=== PATIENT | male | born 1970 | race Caucasian/White ===

== ENCOUNTER 2018-02-22 11:34 | Inpatient (IN) ==
[2018-02-22] MEDS ORDERED: ACETAMINOPHEN 325 MG TABLET PO PRN (14:53)
[2018-02-22] MEDS ORDERED: ONDANSETRON 4 MG/2 ML VIAL IV PRN (14:53)
[2018-02-22] MEDS ORDERED: ALBUTEROL/IPRATROPIUM 3 ML NEB RESP TX PRN (15:02)
[2018-02-22 15:51] LABS: Basophils # 0.1 10*3/uL (0.0-0.2); Basophils % 0.3 % (0.0-0.8); Eosinophils # 0.1 10*3/uL (0.0-0.87); Eosinophils % 0.4 % (0.00-10.9); Hematocrit 33.5 VOL% (42.0-52.0); Hemoglobin 10.7 GM/DL (14.0-18.0); Immature Granulocytes % 5.9 %; Immature Granulocytes Absolute 1.13 #; Lymphocytes # 2.1 10*3/uL (1.4-4.0); Lymphocytes % 10.8 % (21.2-54.2); Mean Corpuscular HGB Conc 31.9 GM/DL (32-36); Mean Corpuscular Hemoglobin 30 PG (27-34); Mean Corpuscular Volume 92.5 FL (87-102); Mean Platelet Volume 12.4 FL (9.6-12.0); Monocytes % 5.2 % (1.7-12.7); Neutrophils # 14.9 10*3/uL (1.4-7.4); Neutrophils % 77.4 % (38.7-73.9); Platelet Count 281 T/CUMM (130-400); Red Blood Count 3.62 MC/CUMM (3.8-5.5); Red Cell Distribution Width 15.8 % (9.3-17.3); White Blood Count 19.2 T/CUMM (4-12)
[2018-02-22] MEDS ORDERED: DILTIAZEM 25 MG/5 ML VIAL IV ONE ×2 (16:12→20:57)
[2018-02-22 16:13] LABS: Bilirubin,Total 1.4 MG/DL (0.2-1.0); Calcium 8.2 MG/DL (8.5-10.1); Osmolality,Calculated 271.2 MOS/KG (273-304); Potassium 3.5 MMOL/L (3.5-5.1); Total Protein 7.9 G/DL (6.4-8.3)
[2018-02-22 16:14] LABS: Troponin I < 0.015 NG/ML (0.00-0.045)
[2018-02-22 16:55] LABS: Band Neutrophils 2 % (0-10); Eosinophils 1 % (0-10); Lymphocytes 11 % (20-55); Myelocytes 1 %; Segmented Neutrophils 79 % (50-85); Total Cells Counted 100
[2018-02-22 16:56] LABS: Hypochromasia Slight; Microcytosis Slight; Platelet Estimate Normal
[2018-02-22] MEDS: DILTIAZEM INJ 100 MG in SODIUM CHLORIDE 0.9% 100 ML IV SCH ×2 (16:57→22:59)
[2018-02-22] MEDS: PIPERACILLIN/TAZOBACTAM 3,375 MG in SODIUM CHLORIDE 0.9% 100 ML IV SCH (17:34)
[2018-02-22] MEDS: ENOXAPARIN 80 MG/0.8 ML SYRINGE SUBCUT SCH (17:50)
[2018-02-22] MEDS ORDERED: METOPROLOL TARTRATE 5 MG/5 ML VIAL IV ONE ×2 (19:42→19:52)
[2018-02-22] MEDS ORDERED: SODIUM CHLORIDE 0.9% 500 ML IV ONE (19:56)
[2018-02-22 21:04] LABS: Troponin I < 0.015 NG/ML (0.00-0.045)
[2018-02-22] MEDS: VANCOMYCIN INJ 2,500 MG in SODIUM CHLORIDE 0.9% 500 ML IV SCH (21:17)
[2018-02-22] MEDS ORDERED: LABETALOL 20 MG/4 ML SYRINGE IV ONE (22:27)
[2018-02-22] MEDS ORDERED: METOPROLOL TARTRATE 5 MG/5 ML VIAL IV PRN (23:00)
[2018-02-23] MEDS ORDERED: METOPROLOL TARTRATE 5 MG/5 ML VIAL IV SCH
[2018-02-23] MEDS: PIPERACILLIN/TAZOBACTAM 3,375 MG in SODIUM CHLORIDE 0.9% 100 ML IV SCH ×3 (01:23→20:00)
[2018-02-23] MEDS ORDERED: DIGOXIN 0.5 MG/2 ML AMP IV ONE (01:47)
[2018-02-23] MEDS ORDERED: AMIODARONE INJ 450 MG in DEXTROSE 5% 241 ML IV SCH (03:00)
[2018-02-23] MEDS ORDERED: MORPHINE 4 MG/1 ML VIAL IV PRN (03:41)
[2018-02-23] MEDS: DILTIAZEM INJ 100 MG in SODIUM CHLORIDE 0.9% 100 ML IV SCH ×5 (04:01→23:30)
[2018-02-23 04:23] LABS: Basophils # 0.1 10*3/uL (0.0-0.2); Basophils % 0.4 % (0.0-0.8); Eosinophils # 0.1 10*3/uL (0.0-0.87); Eosinophils % 0.4 % (0.00-10.9); Hematocrit 33.2 VOL% (42.0-52.0); Hemoglobin 10.8 GM/DL (14.0-18.0); Immature Granulocytes % 7.3 %; Lymphocytes # 1.9 10*3/uL (1.4-4.0); Lymphocytes % 11.5 % (21.2-54.2); Mean Corpuscular HGB Conc 32.5 GM/DL (32-36); Mean Corpuscular Hemoglobin 30 PG (27-34); Mean Platelet Volume 11.9 FL (9.6-12.0); Monocytes # 0.9 10*3/uL (0.11-0.8); Monocytes % 5.4 % (1.7-12.7); Neutrophils # 12.4 10*3/uL (1.4-7.4); Platelet Count 284 T/CUMM (130-400); Red Blood Count 3.57 MC/CUMM (3.8-5.5); Red Cell Distribution Width 15.7 % (9.3-17.3); White Blood Count 16.5 T/CUMM (4-12)
[2018-02-23 04:59] LABS: Troponin I 0.023 NG/ML (0.00-0.045)
[2018-02-23 05:04] LABS: Calcium 7.6 MG/DL (8.5-10.1); Osmolality,Calculated 270.4 MOS/KG (273-304); Potassium 3.3 MMOL/L (3.5-5.1); Risk Ratio 5.6; Thyroid Stimulating Hormone 1.19 uIU/ml (0.358-3.74)
[2018-02-23 05:05] LABS: Lymphocytes 10 % (20-55); Segmented Neutrophils 86 % (50-85); Total Cells Counted 100
[2018-02-23 05:06] LABS: Platelet Estimate Normal; Polychromasia Slight
[2018-02-23] MEDS: ENOXAPARIN 80 MG/0.8 ML SYRINGE SUBCUT SCH ×2 (05:20→20:00)
[2018-02-23] MEDS ORDERED: DILTIAZEM 50 MG/10 ML VIAL IV ONE (07:43)
[2018-02-23] MEDS: PANTOPRAZOLE 40 MG TABLET PO SCH (08:28)
[2018-02-23] MEDS ORDERED: POTASSIUM CHLORIDE 20 MEQ TABLET PO PRN (08:32)
[2018-02-23] MEDS ORDERED: AMIODARONE 450 MG/9 ML VIAL IV ONE ×2 (11:21→19:13)
[2018-02-23] MEDS: AMIODARONE INJ 450 MG in DEXTROSE 5% 241 ML IV SCH ×2 (11:30→19:30)
[2018-02-23] MEDS ORDERED: INFLUENZA VIRUS VACCINE 0.5 ML SYRINGE IM ONE (14:07)
[2018-02-23 18:14] LABS: Amorphous Crystals,Urine Occasional /HPF (Few); Apearance,Urine Slightly Hazy (Clear); Bilirubin,Urine Negative (Negative); Blood, Urine Large mg/dL (Negative); Glucose,Urine (UA) Negative (Negative); Ketones,Urine Negative (Negative); Mucus,Urine Occasional /LPF (Occasional); Nitrite,Urine Negative (Negative); Protein,Urine Negative; RBC,Urine 3 /HPF (0-4); Urine Color Yellow (Yellow); Urine Specific Gravity 1.012 (1.001-1.035); WBC,Urine 1 /HPF (0-6)
[2018-02-23] MEDS: METOPROLOL TARTRATE 50 MG TABLET PO SCH ×2 (19:22→20:26)
[2018-02-23] MEDS: POTASSIUM CHLORIDE 20 MEQ TABLET PO SCH (19:22)
[2018-02-23] MEDS: MORPHINE 4 MG/1 ML VIAL IV PRN ×2 (20:29→23:55)
[2018-02-23] MEDS: VANCOMYCIN INJ 2,500 MG in SODIUM CHLORIDE 0.9% 500 ML IV SCH (21:10)
[2018-02-24] MEDS: PIPERACILLIN/TAZOBACTAM 3,375 MG in SODIUM CHLORIDE 0.9% 100 ML IV SCH ×3 (02:05→16:54)
[2018-02-24] MEDS: AMIODARONE INJ 450 MG in DEXTROSE 5% 241 ML IV SCH ×3 (03:06→19:36)
[2018-02-24] MEDS: DILTIAZEM INJ 100 MG in SODIUM CHLORIDE 0.9% 100 ML IV SCH ×5 (03:07→23:03)
[2018-02-24 04:59] LABS: Basophils # 0.1 10*3/uL (0.0-0.2); Basophils % 0.5 % (0.0-0.8); Eosinophils # 0.2 10*3/uL (0.0-0.87); Eosinophils % 1.1 % (0.00-10.9); Hematocrit 34.7 VOL% (42.0-52.0); Hemoglobin 11.2 GM/DL (14.0-18.0); Immature Granulocytes % 8.6 %; Immature Granulocytes Absolute 1.45 #; Lymphocytes # 1.9 10*3/uL (1.4-4.0); Lymphocytes % 11.3 % (21.2-54.2); Mean Corpuscular HGB Conc 32.3 GM/DL (32-36); Mean Corpuscular Hemoglobin 30 PG (27-34); Mean Corpuscular Volume 93.8 FL (87-102); Mean Platelet Volume 12.3 FL (9.6-12.0); Monocytes % 6.1 % (1.7-12.7); NRBC # 0.02 10*3/uL; Neutrophils # 12.2 10*3/uL (1.4-7.4); Neutrophils % 72.4 % (38.7-73.9); Platelet Count 246 T/CUMM (130-400); Red Cell Distribution Width 15.9 % (9.3-17.3); White Blood Count 16.9 T/CUMM (4-12)
[2018-02-24 05:13] LABS: Calcium 7.6 MG/DL (8.5-10.1); Osmolality,Calculated 269.1 MOS/KG (273-304); Potassium 3.7 MMOL/L (3.5-5.1)
[2018-02-24 05:32] LABS: Band Neutrophils 3 % (0-10); Eosinophils 1 % (0-10); Hypochromasia 2+; Lymphocytes 8 % (20-55); Metamyelocytes 2 %; Platelet Estimate Normal; Segmented Neutrophils 82 % (50-85); Total Cells Counted 100
[2018-02-24] MEDS: MORPHINE 4 MG/1 ML VIAL IV PRN ×2 (06:40→19:38)
[2018-02-24] MEDS: ENOXAPARIN 80 MG/0.8 ML SYRINGE SUBCUT SCH (06:45)
[2018-02-24] MEDS: RIVAROXABAN 20 MG TABLET PO SCH (08:05)
[2018-02-24] MEDS: METOPROLOL TARTRATE 50 MG TABLET PO SCH ×2 (08:06→21:02)
[2018-02-24] MEDS: POTASSIUM CHLORIDE 20 MEQ TABLET PO SCH (08:06)
[2018-02-24] MEDS: PANTOPRAZOLE 40 MG TABLET PO SCH (08:07)
[2018-02-24] MEDS: DILTIAZEM CD 240 MG CAPSULE PO SCH (15:26)
[2018-02-24] MEDS: AMIODARONE 200 MG TABLET PO SCH (21:02)
[2018-02-24] MEDS: HYDROcodone/CHLORPHENIRAMINE ER 5 ML UDCUP PO SCH (21:02)
[2018-02-24] MEDS: TRIAMCINOLONE 0.1% OINT 15 GM TUBE TOP SCH (21:02)
[2018-02-24] MEDS: VANCOMYCIN INJ 2,500 MG in SODIUM CHLORIDE 0.9% 500 ML IV SCH (21:02)
[2018-02-25] MEDS: AMIODARONE INJ 450 MG in DEXTROSE 5% 241 ML IV SCH ×2 (01:51→09:50)
[2018-02-25] MEDS: MORPHINE 4 MG/1 ML VIAL IV PRN ×2 (02:11→19:15)
[2018-02-25] MEDS: PIPERACILLIN/TAZOBACTAM 3,375 MG in SODIUM CHLORIDE 0.9% 100 ML IV SCH ×3 (02:15→16:42)
[2018-02-25] MEDS ORDERED: RIVAROXABAN 20 MG TABLET PO SCH (09:00)
[2018-02-25] MEDS: PANTOPRAZOLE 40 MG TABLET PO SCH (09:21)
[2018-02-25] MEDS: FUROSEMIDE 40 MG TABLET PO SCH (09:21)
[2018-02-25] MEDS: LISINOPRIL 5 MG TABLET PO SCH (09:21)
[2018-02-25] MEDS: RIVAROXABAN 20 MG TABLET PO SCH (09:22)
[2018-02-25] MEDS: DILTIAZEM CD 240 MG CAPSULE PO SCH (09:22)
[2018-02-25] MEDS: POTASSIUM CHLORIDE 20 MEQ TABLET PO SCH (09:22)
[2018-02-25] MEDS: METOPROLOL TARTRATE 50 MG TABLET PO SCH ×2 (09:22→20:13)
[2018-02-25] MEDS: AMIODARONE 200 MG TABLET PO SCH ×2 (09:22→20:13)
[2018-02-25] MEDS: HYDROcodone/CHLORPHENIRAMINE ER 5 ML UDCUP PO SCH ×2 (09:24→20:13)
[2018-02-25] MEDS: TRIAMCINOLONE 0.1% OINT 15 GM TUBE TOP SCH ×2 (11:08→21:21)
[2018-02-25] MEDS: SODIUM CHLORIDE 0.9% 1,000 ML IV SCH (16:44)
[2018-02-25] MEDS: VANCOMYCIN INJ 2,500 MG in SODIUM CHLORIDE 0.9% 500 ML IV SCH (20:52)
[2018-02-26] MEDS: PIPERACILLIN/TAZOBACTAM 3,375 MG in SODIUM CHLORIDE 0.9% 100 ML IV SCH ×3 (01:50→20:59)
[2018-02-26 03:40] LABS: Basophils # 0.1 10*3/uL (0.0-0.2); Basophils % 0.4 % (0.0-0.8); Eosinophils # 0.1 10*3/uL (0.0-0.87); Eosinophils % 0.8 % (0.00-10.9); Hematocrit 35.5 VOL% (42.0-52.0); Immature Granulocytes % 5.1 %; Immature Granulocytes Absolute 0.69 #; Lymphocytes # 0.9 10*3/uL (1.4-4.0); Mean Corpuscular Hemoglobin 29 PG (27-34); Mean Corpuscular Volume 93.9 FL (87-102); Mean Platelet Volume 11.3 FL (9.6-12.0); Monocytes # 0.7 10*3/uL (0.11-0.8); Neutrophils % 81.7 % (38.7-73.9); Platelet Count 395 T/CUMM (130-400); Red Blood Count 3.78 MC/CUMM (3.8-5.5); Red Cell Distribution Width 15.9 % (9.3-17.3); White Blood Count 13.5 T/CUMM (4-12)
[2018-02-26 04:08] LABS: Calcium 7.7 MG/DL (8.5-10.1); Potassium 3.9 MMOL/L (3.5-5.1)
[2018-02-26 04:45] LABS: Lymphocytes 4 % (20-55); Segmented Neutrophils 94 % (50-85); Total Cells Counted 100
[2018-02-26 04:46] LABS: Platelet Estimate Normal; Polychromasia Few
[2018-02-26] MEDS: DILTIAZEM CD 240 MG CAPSULE PO SCH (08:02)
[2018-02-26] MEDS: METOPROLOL TARTRATE 50 MG TABLET PO SCH ×2 (08:03→20:59)
[2018-02-26] MEDS: AMIODARONE 200 MG TABLET PO SCH ×2 (08:03→20:59)
[2018-02-26] MEDS: POTASSIUM CHLORIDE 20 MEQ TABLET PO SCH (10:23)
[2018-02-26] MEDS: TRIAMCINOLONE 0.1% OINT 15 GM TUBE TOP SCH ×2 (10:23→21:01)
[2018-02-26] MEDS: RIVAROXABAN 20 MG TABLET PO SCH (10:23)
[2018-02-26] MEDS: FUROSEMIDE 40 MG TABLET PO SCH (10:23)
[2018-02-26] MEDS: HYDROcodone/CHLORPHENIRAMINE ER 5 ML UDCUP PO SCH ×2 (10:24→20:59)
[2018-02-26] MEDS: PANTOPRAZOLE 40 MG TABLET PO SCH (10:24)
[2018-02-26] MEDS: LISINOPRIL 5 MG TABLET PO SCH (10:24)
[2018-02-26] MEDS ORDERED: PROPOFOL 200 MG/20 ML VIAL IV ONE (12:52)
[2018-02-26] MEDS: SODIUM CHLORIDE 0.9% 1,000 ML IV SCH (13:30)
[2018-02-26] MEDS ORDERED: VANCOMYCIN INJ 2,500 MG in SODIUM CHLORIDE 0.9% 500 ML IV SCH (15:00)
[2018-02-26] MEDS: LINEZOLID INJ 600 MG in PREMIX 1 EACH IV SCH (16:10)
[2018-02-27] MEDS: LINEZOLID INJ 600 MG in PREMIX 1 EACH IV SCH ×2 (04:10→17:21)
[2018-02-27 04:50] LABS: Basophils # 0.1 10*3/uL (0.0-0.2); Basophils % 0.5 % (0.0-0.8); Eosinophils # 0.2 10*3/uL (0.0-0.87); Eosinophils % 1.4 % (0.00-10.9); Hematocrit 34.2 VOL% (42.0-52.0); Hemoglobin 10.5 GM/DL (14.0-18.0); Immature Granulocytes % 3.6 %; Lymphocytes # 0.8 10*3/uL (1.4-4.0); Lymphocytes % 7.3 % (21.2-54.2); Mean Corpuscular HGB Conc 30.7 GM/DL (32-36); Mean Corpuscular Hemoglobin 29 PG (27-34); Mean Corpuscular Volume 94.7 FL (87-102); Monocytes # 0.7 10*3/uL (0.11-0.8); Neutrophils # 9.1 10*3/uL (1.4-7.4); Neutrophils % 81.2 % (38.7-73.9); Platelet Count 422 T/CUMM (130-400); Red Blood Count 3.61 MC/CUMM (3.8-5.5); White Blood Count 11.2 T/CUMM (4-12)
[2018-02-27 05:17] LABS: Calcium 7.7 MG/DL (8.5-10.1); Osmolality,Calculated 276.8 MOS/KG (273-304); Potassium 3.9 MMOL/L (3.5-5.1)
[2018-02-27] MEDS: PIPERACILLIN/TAZOBACTAM 3,375 MG in SODIUM CHLORIDE 0.9% 100 ML IV SCH ×3 (06:59→19:11)
[2018-02-27] MEDS: LISINOPRIL 5 MG TABLET PO SCH (08:23)
[2018-02-27] MEDS: DILTIAZEM CD 240 MG CAPSULE PO SCH (08:23)
[2018-02-27] MEDS: PANTOPRAZOLE 40 MG TABLET PO SCH (08:23)
[2018-02-27] MEDS: AMIODARONE 200 MG TABLET PO SCH ×2 (08:23→20:49)
[2018-02-27] MEDS: HYDROcodone/CHLORPHENIRAMINE ER 5 ML UDCUP PO SCH ×2 (08:23→20:48)
[2018-02-27] MEDS: FUROSEMIDE 40 MG TABLET PO SCH (08:23)
[2018-02-27] MEDS: RIVAROXABAN 20 MG TABLET PO SCH (08:23)
[2018-02-27] MEDS: POTASSIUM CHLORIDE 20 MEQ TABLET PO SCH (08:23)
[2018-02-27] MEDS: METOPROLOL TARTRATE 50 MG TABLET PO SCH ×2 (08:23→20:48)
[2018-02-27] MEDS: TRIAMCINOLONE 0.1% OINT 15 GM TUBE TOP SCH (08:24)
[2018-02-27] MEDS: SODIUM CHLORIDE 0.9% 1,000 ML IV SCH (08:33)
[2018-02-27] MEDS ORDERED: INFLUENZA VIRUS VACCINE 0.5 ML SYRINGE IM ONE (09:00)
[2018-02-27] MEDS: CLOTRIMAZOLE 1% CREAM 15 GM TUBE TOP SCH ×2 (15:37→20:49)
[2018-02-28] MEDS: PIPERACILLIN/TAZOBACTAM 3,375 MG in SODIUM CHLORIDE 0.9% 100 ML IV SCH ×2 (02:50→08:46)
[2018-02-28] MEDS: SODIUM CHLORIDE 0.9% 1,000 ML IV SCH ×2 (04:48→21:20)
[2018-02-28 05:33] LABS: Basophils % 0.4 % (0.0-0.8); Eosinophils # 0.2 10*3/uL (0.0-0.87); Eosinophils % 1.7 % (0.00-10.9); Hematocrit 34.1 VOL% (42.0-52.0); Hemoglobin 10.6 GM/DL (14.0-18.0); Immature Granulocytes % 2.2 %; Immature Granulocytes Absolute 0.23 #; Lymphocytes # 0.9 10*3/uL (1.4-4.0); Lymphocytes % 8.4 % (21.2-54.2); Mean Corpuscular HGB Conc 31.1 GM/DL (32-36); Mean Corpuscular Hemoglobin 29 PG (27-34); Mean Corpuscular Volume 94.5 FL (87-102); Mean Platelet Volume 10.5 FL (9.6-12.0); Monocytes # 0.7 10*3/uL (0.11-0.8); Monocytes % 6.5 % (1.7-12.7); Neutrophils # 8.3 10*3/uL (1.4-7.4); Neutrophils % 80.8 % (38.7-73.9); Platelet Count 432 T/CUMM (130-400); Red Blood Count 3.61 MC/CUMM (3.8-5.5); Red Cell Distribution Width 15.9 % (9.3-17.3); White Blood Count 10.3 T/CUMM (4-12)
[2018-02-28 05:53] LABS: Calcium 7.8 MG/DL (8.5-10.1); Potassium 4.3 MMOL/L (3.5-5.1)
[2018-02-28] MEDS: LINEZOLID INJ 600 MG in PREMIX 1 EACH IV SCH (06:17)
[2018-02-28] MEDS: FUROSEMIDE 40 MG TABLET PO SCH (08:49)
[2018-02-28] MEDS: POTASSIUM CHLORIDE 20 MEQ TABLET PO SCH (08:49)
[2018-02-28] MEDS: RIVAROXABAN 20 MG TABLET PO SCH (08:49)
[2018-02-28] MEDS: PANTOPRAZOLE 40 MG TABLET PO SCH (08:49)
[2018-02-28] MEDS: METOPROLOL TARTRATE 50 MG TABLET PO SCH ×2 (08:50→21:13)
[2018-02-28] MEDS: DILTIAZEM CD 240 MG CAPSULE PO SCH (08:50)
[2018-02-28] MEDS: HYDROcodone/CHLORPHENIRAMINE ER 5 ML UDCUP PO SCH ×2 (08:50→21:14)
[2018-02-28] MEDS: AMIODARONE 200 MG TABLET PO SCH ×2 (08:50→21:13)
[2018-02-28] MEDS: CLOTRIMAZOLE 1% CREAM 15 GM TUBE TOP SCH ×2 (13:07→21:14)
[2018-02-28] MEDS ORDERED: LIDOCAINE 1% 20 ML VIAL ONE (14:39)
[2018-02-28] MEDS ORDERED: BIVALIRUDIN 250 MG VIAL IV ONE ×2 (14:39→15:28)
[2018-02-28] MEDS ORDERED: HYDROmorphone 2 MG/1 ML VIAL ONE (14:39)
[2018-02-28] MEDS ORDERED: MIDAZOLAM 2 MG/2 ML VIAL ONE (14:39)
[2018-02-28] MEDS ORDERED: NITROGLYCERIN DRIP 50 MG/250 ML BOTTLE IV ONE (15:04)
[2018-02-28] MEDS ORDERED: PRASUGREL 10 MG TABLET ONE (16:16)
[2018-02-28] MEDS ORDERED: ZALEPLON 5 MG CAPSULE PO PRN (16:24)
[2018-02-28] MEDS: LINEZOLID 600 MG TABLET PO SCH (21:14)
[2018-02-28] MEDS: MORPHINE 4 MG/1 ML VIAL IV PRN (21:15)
[2018-03-01 05:55] LABS: Potassium 4.2 MMOL/L (3.5-5.1)
[2018-03-01 06:01] LABS: Troponin I < 0.015 NG/ML (0.00-0.045)
[2018-03-01] MEDS: POTASSIUM CHLORIDE 20 MEQ TABLET PO SCH (09:54)
[2018-03-01] MEDS: AMIODARONE 200 MG TABLET PO SCH ×2 (09:54→20:47)
[2018-03-01] MEDS: FUROSEMIDE 40 MG TABLET PO SCH (09:54)
[2018-03-01] MEDS: PANTOPRAZOLE 40 MG TABLET PO SCH (09:54)
[2018-03-01] MEDS: METOPROLOL TARTRATE 50 MG TABLET PO SCH ×2 (09:55→20:47)
[2018-03-01] MEDS: DILTIAZEM CD 240 MG CAPSULE PO SCH (09:55)
[2018-03-01] MEDS: RIVAROXABAN 20 MG TABLET PO SCH (09:55)
[2018-03-01] MEDS: LINEZOLID 600 MG TABLET PO SCH ×2 (09:55→20:47)
[2018-03-01] MEDS: CLOTRIMAZOLE 1% CREAM 15 GM TUBE TOP SCH ×2 (09:56→21:19)
[2018-03-01] MEDS: HYDROcodone/CHLORPHENIRAMINE ER 5 ML UDCUP PO SCH ×2 (09:56→20:47)
[2018-03-01] MEDS: hydrALAZINE 25 MG TABLET PO SCH (20:47)
[2018-03-01] MEDS: LISINOPRIL 5 MG TABLET PO SCH (20:47)
[2018-03-01] MEDS: MORPHINE 4 MG/1 ML VIAL IV PRN (20:48)
[2018-03-02 03:23] LABS: Basophils # 0.1 10*3/uL (0.0-0.2); Basophils % 0.7 % (0.0-0.8); Eosinophils # 0.2 10*3/uL (0.0-0.87); Eosinophils % 1.8 % (0.00-10.9); Hematocrit 37.4 VOL% (42.0-52.0); Hemoglobin 11.6 GM/DL (14.0-18.0); Immature Granulocytes % 1.5 %; Immature Granulocytes Absolute 0.13 #; Lymphocytes # 1.4 10*3/uL (1.4-4.0); Lymphocytes % 15.7 % (21.2-54.2); Mean Corpuscular Hemoglobin 30 PG (27-34); Mean Corpuscular Volume 95.2 FL (87-102); Mean Platelet Volume 10.8 FL (9.6-12.0); Monocytes # 0.7 10*3/uL (0.11-0.8); Monocytes % 7.7 % (1.7-12.7); Neutrophils # 6.3 10*3/uL (1.4-7.4); Neutrophils % 72.6 % (38.7-73.9); Platelet Count 479 T/CUMM (130-400); Red Blood Count 3.93 MC/CUMM (3.8-5.5); Red Cell Distribution Width 15.8 % (9.3-17.3); White Blood Count 8.7 T/CUMM (4-12)
[2018-03-02 04:02] LABS: Calcium 8.2 MG/DL (8.5-10.1); Osmolality,Calculated 277.7 MOS/KG (273-304)
[2018-03-02] MEDS: DILTIAZEM CD 240 MG CAPSULE PO SCH (08:27)
[2018-03-02] MEDS: HYDROcodone/CHLORPHENIRAMINE ER 5 ML UDCUP PO SCH (08:27)
[2018-03-02] MEDS: LISINOPRIL 5 MG TABLET PO SCH (08:27)
[2018-03-02] MEDS: RIVAROXABAN 20 MG TABLET PO SCH (08:27)
[2018-03-02] MEDS: METOPROLOL TARTRATE 50 MG TABLET PO SCH (08:27)
[2018-03-02] MEDS: PANTOPRAZOLE 40 MG TABLET PO SCH (08:27)
[2018-03-02] MEDS: FUROSEMIDE 40 MG TABLET PO SCH (08:27)
[2018-03-02] MEDS: LINEZOLID 600 MG TABLET PO SCH (08:27)
[2018-03-02] MEDS: AMIODARONE 200 MG TABLET PO SCH (08:27)
[2018-03-02] MEDS: hydrALAZINE 25 MG TABLET PO SCH (08:27)
[2018-03-02] MEDS: POTASSIUM CHLORIDE 20 MEQ TABLET PO SCH (08:27)
[2018-03-02] MEDS: CLOTRIMAZOLE 1% CREAM 15 GM TUBE TOP SCH (08:28)
[2018-03-02] MEDS ORDERED: AMIODARONE 200 MG TABLET PO SCH (09:51)
[2018-03-02] MEDS: SODIUM CHLORIDE 0.9% 1,000 ML IV SCH (10:16)
[2018-03-02 12:18] VITALS: BP 126/77
== END 2018-03-02 16:32 | disposition home health service (06) | DRG 201 ==
LOC: SUATTDRO 14:01 → N.2W 14:01 → N.TELEN 16:16 → N.ICU 02-23 08:07 → N.TELEN 02-24 16:59
PROVIDERS: ADMIT Internal Medicine; ATTEND Internal Medicine